=== PATIENT | female | born 1995 | race Caucasian/White ===

== ENCOUNTER → 2018-10-11 19:20 | Observation (INO) ==
[2018-10-11 15:17] LABS: Amphetamine Screen,Urine Negative ng/mL (Cutoff=1000); Barbiturate Screen,Urine Negative ng/mL (Cutoff=200); Benzodiazepines Screen,Urine Negative ng/mL (Cutoff=200); Cannabinoid Screen,Urine Positive ng/mL (Cutoff = 50); Cocaine Screen,Urine Negative ng/mL (Cutoff= 300); Opiate Screen,Urine Negative ng/mL (Cutoff=300); Phencyclidine Screen,Urine Negative ng/mL (Cutoff=25)
[2018-10-11 15:21] LABS: Bacteria,Urine Moderate per hpf (None-Few); Clarity,Urine Clear (Clear); Color,Urine Yellow (Yellow); Hyaline Casts,Urine None Seen per lpf (None-Few); Leukocyte Esterase,Urine Small (Negative); PH,Urine 6.5 pH Units (5.0-8.0); RBC,Urine 0-3 per hpf (0-3); Specific Gravity,Urine < 1.005 (1.010-1.025); Squamous Epithelial Cell,Urine Many per lpf (None-Few); Urobilinogen,Urine Normal (Normal)
[2018-10-11 15:22] LABS: Bilirubin,Urine Negative (Negative); Blood,Urine Negative (Negative); Glucose,Urine (UA) Normal (Normal); Ketones,Urine Negative (Negative); Nitrite,Urine Negative (Negative); Protein,Urine Negative (Neg-Trace)
--- NOTE | 2018-10-11 16:41 | OB/GYN Progress Note ---
Date of Encounter: 10/11/18 Time of Encounter: 16:37 - Assessment and Plan (1) 30 weeks gestation of Current Visit: Yes Status: Acute GBS collected (2) labor in third trimester Current Visit: Yes Status: Acute BMZ x 1 Magnesium for neuroprotection Care transferred to Dr. Blue per [facility] for transfer to [facility] Qualifiers: labor delivery status: without delivery Qualified Code(s): O60.03 - labor without delivery, third trimester Subjective - Subjective Principal diagnosis: labor Interval history: Ms. Guido is a 23-year-old who presents at 30 weeks 4 days gestation with c/o vaginal bleeding on Wednesday followed by 3 days of cramping. She attempted intercourse last night and found it to be very painful. She endorses good fm and denies lof. Antepartum ROS: new complaints, vaginal bleeding, movement normal, contractions, no loss of fluid Objective - Vital Signs Vital Signs: Intake and Output 10/11/18 10/11/18 10/11/18 07:59 15:59 23:59 Other: Weight 69.9 kg Patient Weight 10/11/18 23:59 Weight 69.9 kg - Exam FHR: category 1 Auscultation: bilateral: normal Abdomen: Present: normal appearance, soft, gravid Uterus: Present: normal, firm Cervical dilation: ft changed to 1 Cervix effacement: 30 changed to 70 station: -2 - Labs Labs: Abnormal lab results Ur Specific [place] < 1.005 (1.010-1.025) L 10/11/18 14:45 Ur Leukocyte Esterase Small (Negative) H 10/11/18 14:45 Urine Microscopic WBC 5-15 per hpf (0-3) H 10/11/18 14:45 Ur Squamous Epith Cells Many per lpf (None-Few) H 10/11/18 14:45 Urine Bacteria Moderate per hpf (None-Few) H 10/11/18 14:45 Ur Culture Indicated? NO. (NO) A 10/11/18 14:45 U Marijuana (THC) Screen Positive ng/mL (Cutoff = 50) H 10/11/18 14:38
[2018-10-11] MEDS: Ringers Solution, Lactated 1,000 ML ONE ×3 (16:50→18:15)
[2018-10-11 16:53] LABS: Basophils % 0.3 %; Eosinophils # 0.1 K/mcL (0.0-0.6); Eosinophils % 0.9 %; Hematocrit 30.3 % (35.3-44.9); Immature Granulocytes % 0.4 % (0-4); Lymphocytes % 22.2 %; Mean Corpuscular HGB Conc 29.7 g/dL (31.6-35.5); Mean Corpuscular Volume 73.9 fL (83.0-100.0); Mean Platelet Volume 10.8 fL (9.4-12.4); Monocytes # 0.6 K/mcL (0.0-1.3); Monocytes % 6.6 %; Neutrophils # 6.2 K/mcL (1.6-8.9); Platelet Count 200 K/mcL (140-400); Red Cell Distribution Width 19.5 % (11.5-14.5); Segmented Neutrophils % 69.6 %
[2018-10-11 16:55] LABS: Candida DNA Not Detected (Not Detect); Gardnerella DNA DETECTED (Not Detect); Trichomonas DNA Not Detected (Not Detect)
[~2018-10-11 19:20] MED LIST: Betamethasone Acet/SodPhos 6 MG/ML MDV IM SCH; Indomethacin 25 MG CAPSULE PO ONE; Magnesium Sulfate 20 gm/500mL 20 GM/500 ML IV.SOLN IVC SCH; Ondansetron 4 MG/2 ML VIAL IM ONE; Penicillin G Potassium 2,500,000 UNIT in 0.9 % Sodium Chloride 100 ML IVPB SCH; Penicillin G Potassium 5,000,000 UNIT in 0.9 % Sodium Chloride Mini Bag 100 ML IVPB ONE; Ringers Solution, Lactated 1,000 ML ONE; metroNIDAZOLE 500 MG TABLET PO ONE
== END | disposition critical access hospital (66) ==
LOC: 1NENULAB
PROVIDERS: ADMIT Advanced Practice Midwife; ATTEND Advanced Practice Midwife

== ENCOUNTER → 2018-10-22 02:51 | Observation (INO) ==
--- NOTE | 2018-10-22 02:32 | OB/GYN Progress Note ---
Date of Encounter: 10/22/18 Time of Encounter: 02:27 - Assessment and Plan (1) 32 weeks gestation of Current Visit: Yes Status: Acute NST reactive Discharge home with cleocin ovules Rx due to BV not clearing with po metronidazole Discharge home with PTL precautions Follow up in office as scheduled and PRN POC per consult with Dr Avalos (2) Bacterial vaginosis Current Visit: Yes Status: Acute (3) NST (non-stress test) reactive Current Visit: Yes Status: Acute Subjective - Subjective Principal diagnosis: Vaginal discharge Interval history: Ms Guido is a 23 year old at 32 weeks 1 day gestation that presents to triage with c/o vaginal discharge x 1 day. She states it is watery. She denies intercourse or submerging in a bath without the past 48 hours. She states she was transferred to [facility] for PTL 2 weeks ago and has been having variables on NSTs at Dr Raya's office while she has been having her monitoring. She states positive movement. She denies headache, vision changes, epigastric pain, leaking of fluid, vaginal bleeding, and cramping/contractions. She is seen by Dr Raya for her care. Antepartum ROS: movement normal Objective - Exam FHR: auscultation normal, category 1 FHR comments: Uterine irritability per TOCO; uterus soft on palpation Baseline 130 with 15 x 15 accels, moderate variability, one broken variable noted early in tracing, no additional variable noted. Abdomen: Present: normal appearance, soft, gravid Uterus: Present: normal. Absent: firm Comments: SSE - moderate amount of white/barker discharge, cervix appears visually closed, no pooling negative nitrazine negative ferning; suspicious for BV - 90% clue cells and bacteria present on slide
[~2018-10-22 02:51] MED LIST changes: -Betamethasone Acet/SodPhos 6 MG/ML MDV IM SCH; -Indomethacin 25 MG CAPSULE PO ONE; -Magnesium Sulfate 20 gm/500mL 20 GM/500 ML IV.SOLN IVC SCH; -Ondansetron 4 MG/2 ML VIAL IM ONE; -Penicillin G Potassium 2,500,000 UNIT in 0.9 % Sodium Chloride 100 ML IVPB SCH; -Penicillin G Potassium 5,000,000 UNIT in 0.9 % Sodium Chloride Mini Bag 100 ML IVPB ONE; +Ringers Solution, Lactated 1,000 ML IVC SCH; -Ringers Solution, Lactated 1,000 ML ONE; -metroNIDAZOLE 500 MG TABLET PO ONE
[2018-10-22 03:23] LABS: Candida DNA Not Detected (Not Detect); Gardnerella DNA DETECTED (Not Detect); Trichomonas DNA Not Detected (Not Detect)
== END | disposition home or self-care (01) ==
LOC: 1NENULAB
PROVIDERS: ADMIT Advanced Practice Midwife; ATTEND Advanced Practice Midwife

== ENCOUNTER → 2020-10-16 20:05 | Observation (INO) ==
[2020-10-16 16:43] LABS: Bilirubin,Urine Small (Negative); Blood,Urine Negative (Negative); Clarity,Urine Slightly Cloudy (Clear); Color,Urine Yellow (Yellow); Glucose,Urine (UA) Normal (Normal); Ketones,Urine Negative (Negative); Leukocyte Esterase,Urine Negative (Negative); Nitrite,Urine Negative (Negative); Protein,Urine 100 mg/dL (Neg-Trace); Specific Gravity,Urine >= 1.030 (1.010-1.025); Urobilinogen,Urine Normal (Normal)
[2020-10-16 16:47] LABS: Bacteria,Urine Few per hpf (None-Few); Calcium Oxalate Crystals,Urine Present; Mucus,Urine Moderate per lpf (None-Few); Squamous Epithelial Cell,Urine Few per hpf (None-Few)
[2020-10-16 17:36] LABS: Basophils % 0.5 %; Eosinophils # 0.1 K/mcL (0.0-0.6); Immature Granulocytes % 0.2 % (0-4); Lymphocytes # 1.5 K/mcL (0.6-4.6); Lymphocytes % 18.6 %; Mean Corpuscular HGB Conc 29.6 g/dL (31.6-35.5); Mean Corpuscular Hemoglobin 20.7 pg (28.0-33.3); Mean Corpuscular Volume 69.9 fL (83.0-100.0); Mean Platelet Volume 11.5 fL (9.4-12.4); Monocytes # 0.7 K/mcL (0.0-1.3); Monocytes % 8.2 %; Platelet Count 178 K/mcL (140-400); Red Blood Count 3.86 M/mcL (3.82-4.97); Red Cell Distribution Width 18.3 % (11.5-14.5); Segmented Neutrophils % 71.5 %; White Blood Count 8.2 K/mcL (4.3-11.1)
[2020-10-16 17:38] LABS: Neutrophils # 5.9 K/mcL (1.6-8.9)
[2020-10-16 17:40] LABS: Microcytosis Present (Not Present)
[2020-10-16 18:00] LABS: Alanine Aminotransferase 9 Units/L (7-52); Albumin 3.8 g/dL (3.5-5.7); Albumin/Globulin Ratio 1.3 (1.1-2.2); Alkaline Phosphatase 113 Units/L (34-104); Aspartate Amino Transferase 15 Units/L (13-39); BUN/Creatinine Ratio 16 (6-26); Bilirubin,Total 0.5 mg/dL (0.3-1.0); Blood Urea Nitrogen 8 mg/dL (6-20); Calcium 8.9 mg/dL (8.6-10.3); Carbon Dioxide 20 mEq/L (23-29); Chloride 105 mEq/L (98-107); Glucose 77 mg/dL (70-105); Osmolality,Calculated 275 (280-300); Potassium 3.8 mEq/L (3.5-5.1); Sodium 134 mEq/L (136-145); Total Protein 6.8 g/dL (6.4-8.9); eGFR For African Americans > 60 (> 60); eGFR For Non-African Americans > 60 (> 60)
[2020-10-16 18:19] LABS: Gardnerella DNA DETECTED (Not Detect); Trichomonas DNA Not Detected (Not Detect)
[2020-10-16 18:20] LABS: Candida DNA DETECTED (Not Detect)
[~2020-10-16 20:05] MED LIST changes: +EPHEDrine 50 MG/ML VIAL IVP PRN; +Epidural Premix (fent/bupiv) 110 ML EP SCH; +Ferumoxytol 510 MG in 0.9 % Sodium Chloride 100 ML IVPB ONE; +Ringers Solution, Lactated 1,000 ML IVC ONE; -Ringers Solution, Lactated 1,000 ML IVC SCH
== END | disposition home or self-care (01) ==
LOC: 1NENULAB
PROVIDERS: ADMIT Obstetrics & Gynecology; ATTEND Obstetrics & Gynecology

== ENCOUNTER → 2020-11-06 19:57 | Observation (INO) ==
[2020-11-06 16:07] LABS: Bacteria,Urine Few per hpf (None-Few); Bilirubin,Urine Negative (Negative); Blood,Urine Negative (Negative); Clarity,Urine Clear (Clear); Color,Urine Light-Yellow (Yellow); Glucose,Urine (UA) Normal (Normal); Ketones,Urine Negative (Negative); Leukocyte Esterase,Urine Moderate (Negative); Mucus,Urine Few per lpf (None-Few); Nitrite,Urine Negative (Negative); PH,Urine 6.5 pH Units (5.0-8.0); Protein,Urine Negative (Neg-Trace); RBC,Urine 0-3 per hpf (0-3); Specific Gravity,Urine 1.012 (1.010-1.025); Squamous Epithelial Cell,Urine Moderate per hpf (None-Few); Urobilinogen,Urine Normal (Normal); WBC,Urine 0-3 per hpf (0-3)
== END | disposition home or self-care (01) ==
LOC: 1NENULAB
PROVIDERS: ADMIT Student in an Organized Health Care Education/Training Program; ATTEND Student in an Organized Health Care Education/Training Program

== ENCOUNTER 2020-11-27 21:46 | Observation (INO) | END 2020-11-27 23:44 | disposition home or self-care (01) | LOC: 1NENULAB | PROVIDERS: ADMIT Obstetrics & Gynecology; ATTEND Obstetrics & Gynecology ==

== ENCOUNTER 2020-12-02 09:28 | Inpatient (IN) ==
[2020-12-02] MEDS ORDERED: Metoclopramide 10 MG/2 ML VIAL IVP PRN (09:38)
[2020-12-02] MEDS ORDERED: Famotidine 20 MG/2 ML VIAL IVP PRN (09:38)
[2020-12-02] MEDS ORDERED: Naloxone 0.4 MG/ML INJ IVP PRN (09:38)
[2020-12-02] MEDS ORDERED: Ondansetron 4 MG/2 ML VIAL IVP PRN (09:38)
[2020-12-02] MEDS ORDERED: *HR* Nalbuphine 10 MG/ML AMPUL IV PRN (09:38)
[2020-12-02] MEDS ORDERED: Azithromycin 500 MG in 0.9 % Sodium Chloride 250 ML IVPB ONE (09:38)
[2020-12-02] MEDS ORDERED: EPHEDrine 50 MG/ML VIAL IVP PRN (10:12)
[2020-12-02] MEDS ORDERED: Epidural Premix (fent/bupiv) 110 ML EP SCH (10:15)
[2020-12-02] MEDS ORDERED: Epidural Premix (fent/bupiv) 110 ML EP ONE (10:21)
[2020-12-02 10:37] LABS: Basophils % 0.4 %; Immature Granulocytes % 0.3 % (0-4); Mean Corpuscular HGB Conc 31.4 g/dL (31.6-35.5)
[2020-12-02 10:38] LABS: Eosinophils # 0.1 K/mcL (0.0-0.6); Eosinophils % 1.6 %; Hematocrit 37.9 % (35.3-44.9); Hemoglobin 11.9 g/dL (11.5-15.4); Immature Platelets 12.6 % (1.1-6.1); Lymphocytes % 23.1 %; Mean Corpuscular Volume 86.1 fL (83.0-100.0); Monocytes # 0.7 K/mcL (0.0-1.3); Monocytes % 9.1 %; Neutrophils # 5.2 K/mcL (1.6-8.9); Platelet Count 162 K/mcL (140-400); Segmented Neutrophils % 65.5 %
[2020-12-02 10:39] LABS: Lymphocytes # 1.9 K/mcL (0.6-4.6)
[2020-12-02] MEDS ORDERED: Penicillin G Potassium 5,000,000 UNIT in 0.9 % Sodium Chloride Mini Bag 100 ML IVPB ONE (10:48)
[2020-12-02] MEDS: Ringers Solution, Lactated 1,000 ML IVC SCH ×2 (11:25→13:39)
[2020-12-02 11:42] LABS: Anisocytosis 3+ (Not Present)
[2020-12-02 11:44] LABS: Platelet Estimate Normal (Normal)
[2020-12-02] MEDS ORDERED: Oxytocin 20 units/ LR 1000 mL 20 UNIT/1,000 ML BAG IVC SCH ×2 (12:00→23:28)
[2020-12-02 12:39] LABS: Amphetamine Screen,Urine Negative ng/mL (Cutoff=1000); Barbiturate Screen,Urine Negative ng/mL (Cutoff=200); Benzodiazepines Screen,Urine Negative ng/mL (Cutoff=200); Cannabinoid Screen,Urine Negative ng/mL (Cutoff = 50); Cocaine Screen,Urine Negative ng/mL (Cutoff= 300); Opiate Screen,Urine Negative ng/mL (Cutoff=300); Phencyclidine Screen,Urine Negative ng/mL (Cutoff=25)
[2020-12-02] MEDS: Penicillin G Potassium 2,500,000 UNIT in 0.9 % Sodium Chloride 100 ML IVPB SCH ×2 (15:32→19:40)
[2020-12-02] MEDS ORDERED: Measles/Mumps/Rubella Vacc 0.5 ML VIAL SQ PRN (23:28)
[2020-12-02] MEDS ORDERED: NON-FORMULARY MEDICATION 1 EACH EACH (Ferrous Sulfate 1 TAB) PO SCH (23:28)
[2020-12-02] MEDS ORDERED: Acetaminophen 325 MG TABLET PO PRN (23:28)
[2020-12-02] MEDS: Ibuprofen 600 MG TABLET PO PRN (23:35)
[2020-12-03 06:20] LABS: Basophils % 0.2 %; Immature Granulocytes % 0.4 % (0-4); Lymphocytes % 10.4 %; Mean Corpuscular Volume 85.7 fL (83.0-100.0)
[2020-12-03 06:22] LABS: Eosinophils # 0.1 K/mcL (0.0-0.6); Hematocrit 34.8 % (35.3-44.9); Hemoglobin 11.2 g/dL (11.5-15.4); Immature Platelets 12.2 % (1.1-6.1); Lymphocytes # 1.3 K/mcL (0.6-4.6); Mean Corpuscular HGB Conc 32.2 g/dL (31.6-35.5); Mean Corpuscular Hemoglobin 27.6 pg (28.0-33.3); Monocytes % 7.6 %; Neutrophils # 10.1 K/mcL (1.6-8.9); Platelet Count 140 K/mcL (140-400); Red Blood Count 4.06 M/mcL (3.82-4.97); Segmented Neutrophils % 80.4 %; White Blood Count 12.6 K/mcL (4.3-11.1)
[2020-12-03 06:53] LABS: Anisocytosis 2+ (Not Present)
[2020-12-03 06:54] LABS: Platelet Estimate Normal (Normal)
[2020-12-03] MEDS: Ibuprofen 600 MG TABLET PO PRN ×3 (08:51→20:31)
[2020-12-03] MEDS ORDERED: NON-FORMULARY MEDICATION 1 EACH EACH (Prenat 115/Iron Fum/Folic/Dss [Prenatal 19 Tablet] 1 PO SCH (09:00)
[2020-12-03] MEDS ORDERED: Prenatal Vit/FA 1 EACH TABLET PO SCH (09:00)
[2020-12-03 19:58] VITALS: BP 112/78
== END 2020-12-03 20:33 | disposition home or self-care (01) | DRG 560 ==
LOC: 1NENULAB 09:28 → 1NENUOBS 23:19
PROVIDERS: ADMIT Obstetrics & Gynecology; ATTEND Obstetrics & Gynecology